=== PATIENT | female | born 1950 | race Caucasian/White ===

== ENCOUNTER 2016-09-20 08:30 | Inpatient (IN) ==
[2016-09-22 12:22] LABS: URINE MICRO REVIEW NEEDED? NO; URINE SOURCE CLEAN CATCH
[2016-09-22 12:51] LABS: BILIRUBIN URINE NEGATIVE (NEGATIVE); BLOOD URINE SMALL (NEGATIVE); COLOR YELLOW; GLUCOSE URINE NEGATIVE (NEGATIVE); PROTEIN URINE NEGATIVE (NEGATIVE); TURBIDITY URINE CLEAR (CLEAR); UROBILINOGEN URINE NORMAL (NORMAL)
[2016-09-22 12:52] LABS: LEUKOCYTES URINE TRACE (NEGATIVE); NITRITE URINE NEGATIVE (NEGATIVE)
[2016-09-22 12:53] LABS: UR EPITHELIAL CELLS <10 /HPF (<10); URINE BACTERIA NEGATIVE /HPF; URINE RBC <10 /HPF (<10); URINE WBC <10 /HPF (<10)
--- NOTE | 2016-09-22 13:03 | EKG Report ---
Test Performed on : 09/22/2016 12:06:58 PM Test Reason : PAT Blood Pressure : / mmHG Vent. Rate : 082 BPM Atrial Rate : 082 BPM P-R Int : 148 ms QRS Dur : 072 ms QT Int : 344 ms P-R-T Axes : 067 039 071 degrees QTc Int : 401 ms Normal sinus rhythm. Normal ECG When compared with ECG of 14-MAY-2014 23:54, T wave amplitude has increased in Inferior leads T wave amplitude has increased in Anterior leads Confirmed by Bradford HARP, Luis Conroy ([id number]) on 09/23/2016 5:48:01 PM
[2016-09-22 13:16] LABS: MANUAL DIFF NEEDED? NO
[2016-09-22 13:21] LABS: BASO% 0.6 % (0.0-0.8); EOS# 0.19 X1000 (0.0-0.7); EOS% 2.9 % (0.0-10.0); HEMATOCRIT 39.6 % (37.0-47.0); HEMOGLOBIN 13.6 g/dL (12.0-16.0); LYMPH# 1.65 X1000 (1.2-3.4); LYMPH% 25.3 % (20.5-51.1); MCH 32.3 PG (27-31); MCHC 34.3 g/dL (33-37); MCV 94.1 FL (81-99); MONO# 0.34 X1000 (0.11-0.59); MONO% 5.2 % (1.7-9.3); MPV 8.8 FL (7.4-10.4); PLT 219 X1000 (130-400); RBC 4.21 XMIL (4.2-5.4)
[2016-09-22 13:34] LABS: INR 1.01; PROTIME 10.6 Seconds (9.2-11.7); PTT 26.2 Seconds (22.0-36.0)
[2016-09-22 13:36] LABS: AGAP 14; BUN 24 mg/dL (8-22); CALCIUM 9.6 mg/dL (8.8-10.2); CHLORIDE 95 mmol/L (98-107); COSMO 278; SODIUM 137 mmol/L (136-145); TCO2 28 mmol/L (25-35)
[2016-09-27] MEDS ORDERED: PEPCID ONE (08:14)
[2016-09-27] MEDS ORDERED: COLACE ONE (08:14)
[2016-09-27] MEDS ORDERED: LYRICA ONE (08:15)
[2016-09-27] MEDS ORDERED: LR 1,000 ML ONE (08:15)
[2016-09-27] MEDS ORDERED: KEFZOL 1 GM/D5W 1 GM/50 ML IVPB ONE (08:15)
[2016-09-27] MEDS ORDERED: CELEBREX ONE (08:15)
[2016-09-27] MEDS ORDERED: REGLAN ONE (08:15)
[2016-09-27] MEDS ORDERED: MARCAINE 0.25% PF/EPI 1:200,000 ONE (09:01)
[2016-09-27] MEDS ORDERED: NEOSPORIN G.U. IRRIGANT ONE (09:01)
[2016-09-27] MEDS ORDERED: SODIUM CHLORIDE 0.9% ONE (09:01)
[2016-09-27] MEDS ORDERED: VANCOMYCIN ONE (09:01)
[2016-09-27] MEDS ORDERED: TORADOL ONE (09:01)
[2016-09-27] MEDS ORDERED: DURAMORPH ONE (09:01)
[2016-09-27] MEDS ORDERED: EXPAREL 1.3% ONE (09:02)
[2016-09-27] MEDS ORDERED: CLAVE SECONDARY SET 11953 ONE (09:02)
[2016-09-27] MEDS ORDERED: CYKLOKAPRON 1,000 MG/NS 1,000 MG/100 ML IVPB ONE ×2 (09:03)
[2016-09-27 10:31] LABS: URINE MICRO REVIEW NEEDED? NO; URINE SOURCE CATH
[2016-09-27 10:34] LABS: BILIRUBIN URINE NEGATIVE (NEGATIVE); BLOOD URINE NEGATIVE (NEGATIVE); COLOR YELLOW; GLUCOSE URINE NEGATIVE (NEGATIVE); LEUKOCYTES URINE NEGATIVE (NEGATIVE); NITRITE URINE NEGATIVE (NEGATIVE); PH URINE 7.5; PROTEIN URINE NEGATIVE (NEGATIVE); SP GRAVITY URINE 1.015; TURBIDITY URINE CLEAR (CLEAR); UR EPITHELIAL CELLS <10 /HPF (<10); URINE BACTERIA NEGATIVE /HPF; URINE RBC <10 /HPF (<10); URINE WBC <10 /HPF (<10); UROBILINOGEN URINE NORMAL (NORMAL)
[2016-09-27] MEDS ORDERED: NS 1,000 ML ONE (11:22)
[2016-09-27] MEDS ORDERED: DIPRIVAN 1% 500 MG/50 ML BOTTLE ONE (12:05)
[2016-09-27] MEDS ORDERED: FENTANYL ONE (12:05)
[2016-09-27] MEDS ORDERED: VERSED ONE (12:05)
[2016-09-27] MEDS: DEMEROL ONE ×2 (12:12→12:25)
[2016-09-27] MEDS ORDERED: DECADRON ONE (12:43)
[2016-09-27] MEDS ORDERED: OFIRMEV 1000 MG/ISOTONIC SOLN 1,000 MG/100 ML BOTTLE ONE (12:43)
[2016-09-27] MEDS ORDERED: LR 2,000 ML ONE (12:43)
[2016-09-27] MEDS ORDERED: ZOFRAN ONE (12:43)
[2016-09-27] MEDS ORDERED: EXTENSION SET 32 IN 4522 ONE (12:43)
[2016-09-27] MEDS ORDERED: MORPHINE IV PRN (13:15)
[2016-09-27] MEDS ORDERED: ZOFRAN IV PRN (13:15)
[2016-09-27] MEDS ORDERED: MILK OF MAGNESIA PO PRN (13:15)
[2016-09-27] MEDS ORDERED: AMBIEN PO PRN (13:15)
[2016-09-27] MEDS: NS 1,000 ML IV SCH ×2 (13:48→23:20)
--- NOTE | 2016-09-27 14:34 | OPERATIVE NOTE ---
PROCEDURE DATE: 09/27/2016 PREOPERATIVE DIAGNOSIS: Left knee degenerative joint disease. POSTOPERATIVE DIAGNOSIS: Left knee degenerative joint disease. PROCEDURE PERFORMED: Left total knee arthroplasty. ANESTHESIA: Spinal. SURGEON: Sebas Gandhi MD ACCOUNT SUPPORT ANALYST: SEAR Oneil COMPLICATIONS: None. BLOOD LOSS: Minimal. DRAINS: Hemovac x1. DESCRIPTION OF PROCEDURE: The patient was brought to the operative suite and placed in supine position. After successful administration of spinal anesthesia, a well-padded tourniquet was placed on the left proximal thigh. The left lower extremity was prepped and draped in the usual sterile fashion. Leg was exsanguinated. Tourniquet insufflated to 350 torr. A longitudinal incision was made beginning at the superior pole of the patella and extended distally to the tibia tuberosity. It was dissected sharply through the skin, full-thickness skin flaps were elevated medially and laterally. A medial arthrotomy made with a vastus snip. The medial capsule was elevated off the medial tibial plateau. The prepatellar fat pad, ACL, PCL, medial meniscus, lateral meniscus were excised. A drill was entered in the distal femur. An intramedullary guide was placed. Distal cutting block was pinned into place. The distal cut was made with an oscillating saw. The femur was sized to a size 6. A size 6 cutting block was pinned into place. Anterior cuts, chamfer cuts, and posterior condylar cuts were made with the oscillating saw. Marginal osteophytes were removed with rongeur. A box cutting block was pinned into place. A box cut was made with a box osteotome and oscillating saw. The posterior condyle osteophytes removed with the curved osteotome and rongeur. Attention was then directed to the tibia. The drill was entered in the center of the tibia. An intramedullary guide was placed. Alignment checked with drop zuri referencing off the anterior cortex of the tibia and taking 4 mm off the low side of the tibia, which in this case, was medially. The tibial cutting block was pinned into place. The articular surface of tibial plateau was removed with an oscillating saw. Marginal osteophytes removed with rongeur. Flexion and extension gaps were checked and balanced at 11 mm. The tibia sized to a size 5. A size 5 guide was used for the fin punch. The tibial trial, femoral trial, and 11 mm articular insert were placed, taken through range of motion found to have excellent alignment, balancing, range of motion, and patellar tracking. Attention was then directed to the patella and 9 mm of the articular surface of the patella removed with an oscillating saw. Patella sized to size 32. A size 32 guide was used to drill peg holes. The lateral facet was chamfered 30-45 degrees. Patella trial was placed, taken through range of motion found to have excellent patella tracking. All trials were then removed. The knee was copiously irrigated and dried, being certain all bone debris was removed. The tibial component, femoral component, and patellar component were cemented in place, excess cement being removed with a Powers. Once the cement had hardened, excess cement was again removed with an osteotome. The knee was again copiously irrigated and dried, being certain all bone and cement debris were removed. The trial articular inserts were removed. The knee was then copiously infiltrated with Exparel, including the posterior capsule, anterior capsule, anterior musculature, and subcutaneous tissue. The definitive 11 mm articular insert was locked into place, the knee was again taken through range of motion again, found to have excellent alignment, balancing, range of motion, and patellar tracking. After cementing the implants in and placing the spacers, the excess cement was removed with the Powers and osteotome and then the drain was placed exiting superior laterally and buried in the lateral gutter. The medial arthrotomy was closed with 0 Vicryl. Skin edge approximated with 2-0 Vicryl. Skin was closed with skin jose. A sterile dressing was applied. The patient tolerated the procedure well without complication. At the end of the procedure, all counts correct x2. The patient was transferred to the recovery room in stable condition. cc: Sebas Gandhi MD
[2016-09-27] MEDS: ULTRAM PO SCH ×2 (16:32→20:41)
[2016-09-27] MEDS: KEFZOL 1 GM/D5W 1 GM/50 ML IVPB IV SCH (16:33)
[2016-09-27] MEDS: TYLENOL PO SCH ×2 (16:33→23:19)
[2016-09-27] MEDS: LYRICA PO SCH (20:41)
[2016-09-27] MEDS: COLACE PO SCH (20:41)
[2016-09-27] MEDS: PERIDEX MT SCH (20:41)
[2016-09-27] MEDS ORDERED: ZETIA PO SCH (21:00)
[2016-09-28] MEDS: KEFZOL 1 GM/D5W 1 GM/50 ML IVPB IV SCH (01:46)
[2016-09-28] MEDS: NS 1,000 ML IV SCH (02:53)
[2016-09-28] MEDS: ULTRAM PO SCH ×2 (04:48→10:49)
[2016-09-28] MEDS: TYLENOL PO SCH ×2 (04:48→10:49)
[2016-09-28] MEDS ORDERED: XARELTO PO SCH (06:00)
[2016-09-28 06:30] LABS: HEMATOCRIT 30.1 % (37.0-47.0); HEMOGLOBIN 10.1 g/dL (12.0-16.0)
[2016-09-28 06:39] LABS: AGAP 13; BUN 13 mg/dL (8-22); CALCIUM 8.5 mg/dL (8.8-10.2); CHLORIDE 103 mmol/L (98-107); COSMO 279; SODIUM 140 mmol/L (136-145); TCO2 24 mmol/L (25-35)
[2016-09-28] MEDS ORDERED: PRILOSEC PO SCH ×2 (07:00→09:00)
[2016-09-28] MEDS: OXY IR PO PRN ×2 (07:38→12:46)
--- NOTE | 2016-09-28 07:58 | PROGRESS NOTE ---
DATE: 09/28/2016 SUBJECTIVE: Kristin Mobley is a 66-year-old female, who is postoperative day 1 from a left total knee arthroplasty. She has no complaints. OBJECTIVE: She is well-nourished female. She is alert, oriented, and cooperative exam. Vital Signs: Stable. She is afebrile. Extremities: Her leg is neurovascularly intact with no sign of infection or deep venous thrombosis. Her dressing is clean, dry, and intact. She has had minimal output from her drain. LABORATORY DATA: Her hemoglobin is 10.1, hematocrit is 30.1. ASSESSMENT: Stable, postoperative day 1 visit from a left total knee arthroplasty. PLAN: We will discontinue her drain Diggs and IV fluids and change her dressing. We will see how she progresses with physical therapy. If she does well, she can possibly go home later today. She asked for a hospital for home use and I have ordered Social Work to provide that for her. cc: Sebas Gandhi MD
[2016-09-28] MEDS ORDERED: HYDROCHLOROTHIAZIDE PO SCH (09:00)
[2016-09-28] MEDS ORDERED: DECADRON IV ONE (09:00)
[2016-09-28] MEDS ORDERED: MOBIC PO SCH (09:00)
[2016-09-28] MEDS ORDERED: COZAAR PO SCH (09:00)
[2016-09-28] MEDS: PERIDEX MT SCH (10:46)
[2016-09-28] MEDS: LYRICA PO SCH (10:47)
[2016-09-28] MEDS: COLACE PO SCH (10:47)
[2016-09-28 12:02] VITALS: BP 126/66
--- NOTE | 2016-09-28 17:21 | DISCHARGE SUMMARY ---
ADMISSION DATE: 09/27/2016 DISCHARGE DATE: 09/28/2016 DISCHARGE DIAGNOSIS: Left knee degenerative joint disease status post left total knee arthroplasty. DISCHARGE MEDICATIONS: See discharge medication list. DISPOSITION: The patient is discharged home with home health. DISCHARGE INSTRUCTIONS: Total knee arthroplasty protocol and instructed to return to see Dr. Gandhi next . HOSPITAL COURSE: On the day of admission, patient underwent a left total knee arthroplasty. Her postoperative course was unremarkable. At discharge she is afebrile. Tolerating regular diet, and ambulating well with physical therapy. Her wound is clean, dry, and intact without sign of infection. FOLLOWUP: She is discharged home in stable condition with instructions to follow up as described above. Dictated by SOFIA Hyde for Sebas Gandhi MD cc: SOFIA Hyde MD
== END 2016-09-28 15:00 | disposition home health service (06) ==
LOC: SURHOLD 09-27 04:03 → 4N 09-27 09:53
PROVIDERS: ADMIT Orthopaedic Surgery; ATTEND Orthopaedic Surgery

== ENCOUNTER 2016-12-27 07:01 | Inpatient (IN) ==
[2016-12-23 09:10] LABS: MANUAL DIFF NEEDED? NO; URINE MICRO REVIEW NEEDED? NO; URINE SOURCE CLEAN CATCH
[2016-12-23 09:14] LABS: BASO% 0.5 % (0.0-0.8); EOS# 0.28 X1000 (0.0-0.7); EOS% 4.4 % (0.0-10.0); HEMATOCRIT 40.8 % (37.0-47.0); HEMOGLOBIN 13.8 g/dL (12.0-16.0); LYMPH# 2.16 X1000 (1.2-3.4); LYMPH% 34.1 % (20.5-51.1); MCH 31.9 PG (27-31); MCHC 33.8 g/dL (33-37); MCV 94.4 FL (81-99); MONO# 0.42 X1000 (0.11-0.59); MONO% 6.6 % (1.7-9.3); MPV 8.7 FL (7.4-10.4); NEUT% 54.4 % (42.2-75.2); PLT 208 X1000 (130-400); RBC 4.32 XMIL (4.2-5.4)
[2016-12-23 09:16] LABS: BILIRUBIN URINE NEGATIVE (NEGATIVE); BLOOD URINE NEGATIVE (NEGATIVE); COLOR YELLOW; GLUCOSE URINE NEGATIVE (NEGATIVE); LEUKOCYTES URINE LARGE (NEGATIVE); NITRITE URINE NEGATIVE (NEGATIVE); PROTEIN URINE NEGATIVE (NEGATIVE); SP GRAVITY URINE 1.016; TURBIDITY URINE CLEAR (CLEAR); UR EPITHELIAL CELLS <10 /HPF (<10); URINE BACTERIA 1+ /HPF; URINE RBC <10 /HPF (<10); UROBILINOGEN URINE NORMAL (NORMAL)
[2016-12-23 09:25] LABS: INR 0.98; PROTIME 10.3 Seconds (9.2-11.7); PTT 25.5 Seconds (22.0-36.0)
[2016-12-23 10:01] LABS: AGAP 12; BUN 21 mg/dL (8-22); CALCIUM 9.5 mg/dL (8.8-10.2); CHLORIDE 99 mmol/L (98-107); COSMO 282; POTASSIUM 3.5 mmol/L (3.5-5.1); SODIUM 139 mmol/L (136-145); TCO2 28 mmol/L (25-35)
[2016-12-27] MEDS ORDERED: REGLAN ONE (07:10)
[2016-12-27] MEDS ORDERED: COLACE ONE (07:10)
[2016-12-27] MEDS ORDERED: PEPCID ONE (07:10)
[2016-12-27] MEDS ORDERED: CELEBREX ONE (07:10)
[2016-12-27] MEDS ORDERED: LYRICA ONE (07:10)
[2016-12-27] MEDS ORDERED: LR 1,000 ML ONE (07:11)
[2016-12-27] MEDS ORDERED: KEFZOL 1 GM/D5W 1 GM/50 ML IVPB ONE (07:11)
[2016-12-27] MEDS ORDERED: VANCOMYCIN ONE (07:18)
[2016-12-27] MEDS ORDERED: DURAMORPH ONE ×2 (07:18→08:32)
[2016-12-27] MEDS ORDERED: TORADOL ONE ×2 (07:18→08:32)
[2016-12-27] MEDS ORDERED: SENSORCAINE 0.25%/EPI 1:200,000 ONE ×2 (07:18→08:32)
[2016-12-27] MEDS ORDERED: SODIUM CHLORIDE 0.9% ONE (07:19)
[2016-12-27] MEDS ORDERED: CYKLOKAPRON 1,000 MG/NS 2,000 MG/200 ML IVPB ONE (07:19)
[2016-12-27] MEDS ORDERED: EXPAREL 1.3% ONE ×2 (07:22→08:39)
[2016-12-27] MEDS ORDERED: NEOSPORIN G.U. IRRIGANT ONE (07:22)
[2016-12-27] MEDS ORDERED: XYLOCAINE-MPF 2% ONE (07:53)
[2016-12-27] MEDS ORDERED: DIPRIVAN 1% ONE (07:54)
[2016-12-27] MEDS ORDERED: VERSED ONE ×2 (09:25→09:45)
[2016-12-27] MEDS ORDERED: FENTANYL ONE (09:25)
[2016-12-27] MEDS ORDERED: EPHEDRINE ONE (09:56)
[2016-12-27] MEDS ORDERED: DECADRON ONE (10:06)
[2016-12-27] MEDS ORDERED: ZOFRAN ONE (10:06)
[2016-12-27] MEDS ORDERED: OFIRMEV 1000 MG/ISOTONIC SOLN 1,000 MG/100 ML BOTTLE ONE (10:06)
[2016-12-27] MEDS ORDERED: SODIUM CHLORIDE 0.9% 10 ML ONE (10:27)
[2016-12-27] MEDS ORDERED: NEO-SYNEPHRINE ONE (10:27)
[2016-12-27 10:39] LABS: URINE MICRO REVIEW NEEDED? NO; URINE SOURCE CATH
[2016-12-27 10:48] LABS: BILIRUBIN URINE NEGATIVE (NEGATIVE); BLOOD URINE NEGATIVE (NEGATIVE); COLOR STRAW; GLUCOSE URINE NEGATIVE (NEGATIVE); LEUKOCYTES URINE NEGATIVE (NEGATIVE); NITRITE URINE NEGATIVE (NEGATIVE); PH URINE 6.5; PROTEIN URINE NEGATIVE (NEGATIVE); SP GRAVITY URINE 1.002; TURBIDITY URINE CLEAR (CLEAR); UROBILINOGEN URINE NORMAL (NORMAL)
[2016-12-27 10:50] LABS: UR EPITHELIAL CELLS <10 /HPF (<10); URINE BACTERIA NEGATIVE /HPF; URINE RBC <10 /HPF (<10); URINE WBC <10 /HPF (<10)
[2016-12-27] MEDS ORDERED: NS 1,000 ML ONE (11:43)
[2016-12-27] MEDS ORDERED: XANAX PO PRN (12:56)
[2016-12-27] MEDS ORDERED: MORPHINE IV PRN (13:30)
[2016-12-27] MEDS ORDERED: MILK OF MAGNESIA PO PRN (13:30)
[2016-12-27] MEDS ORDERED: NS 1,000 ML IV SCH (13:30)
[2016-12-27] MEDS ORDERED: AMBIEN PO PRN (13:30)
[2016-12-27] MEDS ORDERED: ZOFRAN IV PRN (13:30)
[2016-12-27] MEDS: ULTRAM PO SCH ×2 (13:57→19:54)
[2016-12-27] MEDS: TYLENOL PO SCH ×2 (13:57→19:55)
[2016-12-27] MEDS: OXY IR PO PRN ×2 (13:58→17:22)
--- NOTE | 2016-12-27 16:17 | OPERATIVE NOTE ---
PROCEDURE DATE: 12/27/2016 PREOPERATIVE DIAGNOSIS: Right knee degenerative joint disease. POSTOPERATIVE DIAGNOSIS: Right knee degenerative joint disease. PROCEDURES: Right total knee arthroplasty using [facility] size 5 femur, a size 5 tibial baseplate, a 10 mm articular insert, and a 32 mm patellar component. ANESTHESIA: Spinal. SURGEON: Sebas Gandhi MD. PHOTOGRAPH PRINTER: Dee Dee Chung PA-C, who assisted throughout the case including assisting with closure and alignment of the knee. Second chiropractor assistant was Lucio Reeder RN. COMPLICATIONS: None. BLOOD LOSS: Minimal. DRAINS: Hemovac x1. TOURNIQUET TIME: Approximately an hour and a half. DESCRIPTION OF PROCEDURE: The patient was brought to the operative suite and placed in the supine position. After successful administration of spinal anesthesia, a well-padded tourniquet was placed on the right proximal thigh. The right lower extremity was prepped and draped in the usual sterile fashion. Leg was exsanguinated. Tourniquet insufflated to 350 torr. A longitudinal incision was made beginning at the superior pole of the patella and extending distally to tibial tuberosities, dissected sharply through skin. Full-thickness skin flaps were elevated medially and laterally. A medial arthrotomy was made with a vastus snip. The medial capsule was elevated off the medial tibial plateau. The prepatellar fat pad, ACL, PCL, medial meniscus, and lateral meniscus were excised. A drill was entered in the center of the distal femur. An intramedullary guide was placed. Distal cutting block was pinned in place. The distal cut was made with the oscillating saw. The femur sized to size 5. A size 5 cutting block was pinned in place. Anterior cuts, chamfer cuts, and posterior condylar cuts were made with an oscillating saw. Marginal osteophytes were removed with a rongeur. A box cutting block was pinned in place. A box cut was made with a box osteotome and oscillating saw. The posterior condylar osteophytes were removed with a curved osteotome and a rongeur. Attention was then directed to the tibia. A drill was entered in the center tibia. Intramedullary guide was placed. Alignment checked with drop zuri, referencing off the anterior cortex of the tibia and the second ray of the foot, and taking 4 mm off the low side of the tibia which, in this case, was medially. The articular surface of the tibial plateau was then removed with an oscillating saw. Marginal osteophytes were removed with a rongeur. Flexion and extension gaps were checked and balanced, which was found to be tight medially. A medial release was performed. Then she was balanced medially and laterally at 10 mm. The tibia was sized to size 5. A size 5 guide was used for the fin punch. The tibial trial, femoral trial, and 10 mm articular insert were placed. Taken through a range of motion. Found to have excellent alignment, balancing, range of motion. Attention was then directed to the patella and 9 mm of the articular surface of the patella removed with an oscillating saw. The patella sized to size 32. A size 32 guide was used to drill peg holes. The lateral facet was chamfered 30 to 45 degrees. Patella trial was placed, taken through a range of motion, and found to have excellent patella tracking. All trials were then removed. The knee was copiously irrigated and dried, being certain all bone debris was removed. The tibial component, femoral component, and patellar component were cemented in place, excess cement being removed with a [place]. Once the cement had hardened, excess cement was again removed with an osteotome. The knee was again copiously irrigated and dried, being certain all bone and cement debris were removed. The trial articular insert was removed. The knee was copiously infiltrated with Exparel including posterior capsule, anterior capsule, medial and lateral collateral ligaments, anterior musculature, and subcutaneous tissue. The definitive 10 mm articular insert was locked into place. A drain was placed, exiting superolaterally, and buried in the lateral gutter. The patient again was taken through a range of motion. Again found to have excellent alignment, balancing, range of motion, and patellar tracking. The medial arthrotomy was closed with a running V-Loc 0 suture. The skin edges were approximated with 2-0 Vicryl. Skin was closed with Prineo and then a sterile dressing was applied. The patient tolerated the procedure well without complication. At the end of the procedure, all counts were correct x2. The patient was transferred to the recovery room in stable condition. cc: Sebas Gandhi MD
[2016-12-27] MEDS: KEFZOL 1 GM/D5W 1 GM/50 ML IVPB IV SCH (17:47)
[2016-12-27] MEDS: XARELTO PO SCH (19:55)
[2016-12-27] MEDS ORDERED: ZETIA PO SCH (21:00)
[2016-12-27] MEDS: PERIDEX MT SCH (22:10)
[2016-12-27] MEDS: CELEBREX PO SCH (22:10)
[2016-12-27] MEDS: COLACE PO SCH (22:10)
[2016-12-27] MEDS: LYRICA PO SCH (22:10)
[2016-12-28] MEDS: KEFZOL 1 GM/D5W 1 GM/50 ML IVPB IV SCH (01:30)
[2016-12-28] MEDS: XARELTO PO SCH ×2 (02:33→08:31)
[2016-12-28] MEDS: TYLENOL PO SCH ×2 (04:21→08:31)
[2016-12-28] MEDS: ULTRAM PO SCH ×2 (04:21→08:30)
[2016-12-28 06:10] LABS: AGAP 11; BUN 14 mg/dL (8-22); CHLORIDE 102 mmol/L (98-107); COSMO 280; POTASSIUM 4.1 mmol/L (3.5-5.1); SODIUM 140 mmol/L (136-145); TCO2 27 mmol/L (25-35)
[2016-12-28] MEDS ORDERED: PRILOSEC PO SCH (07:00)
[2016-12-28 07:49] VITALS: BP 130/62
[2016-12-28] MEDS: PERIDEX MT SCH (08:30)
[2016-12-28] MEDS: CELEBREX PO SCH (08:30)
[2016-12-28] MEDS: COLACE PO SCH (08:31)
[2016-12-28] MEDS: LYRICA PO SCH (08:32)
[2016-12-28] MEDS ORDERED: HYDROCHLOROTHIAZIDE PO SCH (09:00)
[2016-12-28] MEDS ORDERED: [UNRECOGNIZED DRUG - REMARK] PO SCH (09:00)
[2016-12-28] MEDS ORDERED: DECADRON IV ONE (09:00)
[2016-12-28] MEDS ORDERED: COLACE PO SCH (09:00)
[2016-12-28] MEDS ORDERED: PEPCID PO SCH (09:00)
[2016-12-28] MEDS ORDERED: COZAAR PO SCH (09:00)
[2016-12-28] MEDS ORDERED: PATIENT'S OWN MED PO SCH (09:00)
[2016-12-28] MEDS: OXY IR PO PRN (10:02)
--- NOTE | 2016-12-28 19:36 | DISCHARGE SUMMARY ---
ADMISSION DATE: 12/27/2016 DISCHARGE DATE: 12/28/2016 DISCHARGE DIAGNOSIS: Right knee degenerative joint disease status post right total knee arthroplasty. DISCHARGE MEDICATIONS: See discharge medication list. DISPOSITION: The patient is discharged home with home health. DISCHARGE INSTRUCTIONS FOR TOTAL KNEE ARTHROPLASTY PROTOCOL: Instructed to return to see Dr. Gandhi next . HOSPITAL COURSE: On the day of admission, patient underwent a right total knee arthroplasty. Her postoperative course was unremarkable. At discharge, she is afebrile, tolerating a regular diet, and ambulating well with Physical Therapy. Yesterday she walked 250 feet. Her wound is clean, dry, and intact without sign of infection. Her hemoglobin is 11 and her hematocrit is 33. She had 70 mL of drainage from her Hemovac. She is discharged home in stable condition with instructions to follow up as described above. Dictated by SOFIA Hyde for Sebas Gandhi MD cc: SOFIA Hyde MD
== END 2016-12-28 11:00 | disposition home health service (06) ==
LOC: SURHOLD 07:01 → 4N 09:06
PROVIDERS: ADMIT Orthopaedic Surgery; ATTEND Orthopaedic Surgery